=== PATIENT | male | born 1955 | race Hispanic/Latino ===

== ENCOUNTER 2018-11-28 20:22 | Inpatient (IN) ==
[2018-11-28] MEDS ORDERED: ZOFRAN IV ONE (23:45)
[2018-11-28] MEDS ORDERED: MORPHINE IV ONE (23:45)
[2018-11-28] MEDS ORDERED: NS 1,000 ML IV ONE (23:45)
[2018-11-29 00:32] LABS: BASO# 0.03 X1000 (0.0-0.2); BASO% 0.2 % (0.0-0.8); EOS# 0.19 X1000 (0.0-0.7); EOS% 1.5 % (0.0-10.0); HEMATOCRIT 43.8 % (42.0-52.0); HEMOGLOBIN 14.9 g/dL (14.0-18.0); IMM GRAN# 0.03 X1000 (0.0-0.04); IMM GRAN% 0.2 % (0.0-0.5); LYMPH# 3.84 X1000 (1.2-3.4); LYMPH% 29.7 % (20.5-51.1); MCH 30.2 PG (27-31); MCV 88.8 FL (81-99); MONO# 1.18 X1000 (0.11-0.59); MONO% 9.1 % (1.7-9.3); MPV 11.3 FL (7.4-10.4); NEUT# 7.64 X1000 (1.4-6.5); NEUT% 59.3 % (42.2-75.2); PLT 258 X1000 (130-400); RBC 4.93 XMIL (4.7-6.1); RDW 14.8 % (11.5-14.5); WBC 12.91 X1000 (4.8-10.8)
[2018-11-29 01:47] LABS: ALB/GLOB RATIO 1.3; ALBUMIN 4.5 g/dL (3.5-5.0); CALCIUM 9.7 mg/dL (8.8-10.2); CREATININE 3.1 mg/dL (0.7-1.2); POTASSIUM 4.2 mmol/L (3.5-5.1); TOTAL BILIRUBIN 0.89 mg/dL (0.20-1.00); TOTAL PROTEIN 7.9 g/dL (6.3-8.3)
[2018-11-29 03:23] LABS: URINE SOURCE CLEAN CATCH
[2018-11-29 03:32] LABS: BILIRUBIN URINE NEGATIVE (NEGATIVE); BLOOD URINE NEGATIVE (NEGATIVE); COLOR YELLOW; GLUCOSE URINE NEGATIVE (NEGATIVE); KETONE URINE NEGATIVE (NEGATIVE); LEUKOCYTES URINE NEGATIVE (NEGATIVE); NITRITE URINE NEGATIVE (NEGATIVE); PROTEIN URINE TRACE mg/dL (NEGATIVE); SP GRAVITY URINE 1.015; TURBIDITY URINE CLEAR (CLEAR); UROBILINOGEN URINE NORMAL (NORMAL)
[2018-11-29 03:59] LABS: UR EPITHELIAL CELLS <10 /HPF (<10); URINE BACTERIA NEGATIVE /HPF; URINE RBC <10 /HPF (<10); URINE WBC <10 /HPF (<10)
[2018-11-29 04:11] LABS: URINE YEAST NONE SEEN
[2018-11-29 04:12] LABS: URINE CASTS GRANULAR PRESENT; URINE CRYSTALS NONE SEEN; URINE SMALL ROUND CELLS NONE SEEN
--- NOTE | 2018-11-29 05:19 | PROVIDER DOCUMENTATION ---
This chart was entered by Emma Bernardo Scribe, acting as scribe for Shayne Buck MD. HPI-Abdominal Pain/GI Problem - General Chief Complaint: Abdominal Pain Stated Complaint: ABD PAIN Time Seen by Provider: 11/28/18 23:27 Source: patient, appliquer - History of Present Illness-ABD Nature of Presenting Problems: 63yom presents to ED cc diarrhea, right flank and RLQ pain since yesterday. Pt has hx of HTN. Pt is non-toxic in appearance. A friend is at bedside interpreting. Abdominal Pain Onset Location: reports: RLQ Pain Radiation: reports: flank (right) Quality of Pain: reports: throbbing Severity in ED: reports: moderate Onset/Duration: reports: 24 hours ago Timing: reports: still present, intermittent Activities at Onset: reports: none Exposure to sick contacts?: No Modifying Factors: worse with: movement Associated Symptoms: reports: diarrhea. denies: vomiting Last BM: unsure Dark Stools Present?: reports: none noticed Rectal Bleeding: reports: none Rectal Pain: reports: none Emesis Description: reports: none Bruising or Bleeding Gums?: No Similar Symptoms Previously?: No Recently seen or treated by another doctor?: No Review of Systems - Adult - REVIEW OF SYSTEMS - ADULT Constitutional: reports: see HPI. denies: chills, fever, fatique Eyes: reports: no symptoms reported Ears, Nose, Mouth & Throat: reports: no symptoms reported Cardiovascular: reports: no symptoms reported Respiratory: reports: no symptoms reported Gastrointestinal: reports: see HPI, abdominal pain (RLQ), diarrhea. denies: vomiting Genitourinary: reports: see HPI, flank pain (right) Musculoskeletal: reports: no symptoms reported Integumentary: reports: no symptoms reported Neurological: reports: no symptoms reported Psychiatric: reports: no symptoms reported Endocrine: reports: no symptoms reported Hematologic/Lymphatic: reports: no symptoms reported Allergic/Immunologic: reports: no symptoms reported All Other Systems: Reviewed and Negative Past History - Adult - PAST MEDICAL HISTORY-ADULT Review of Records: reports: Nursing Assessment Review, Medications Reviewed, Social history reviewed & non-contributory. Major Childhood Illnesses: reports: denies history Cardiovascular: reports: denies history Respiratory: reports: denies history Gastrointestinal: reports: denies history Obstetrical/Gynecological: reports: denies history Genitourinary: reports: denies history Musculoskeletal: reports: denies history Neurological: reports: denies history Endocrine/Immune: reports: denies history Other Conditions: reports: denies history - IMMUNIZATION STATUS Childhood Immunizations: See Nurse Assessment Flu Vaccine: See Nurse Assessment - FAMILY HISTORY Family History: reviewed, not pertinent Physical Exam-General - PHYSICAL EXAM-ADULT Initial Vital Signs Reviewed: Yes - CONSTITUTIONAL General Appearance: appears well, alert. negative: anxious, combative - EYES Eyes: PERRL/EOMI, pink conjunctivae. negative: photophobia - HEAD, EARS, NOSE, MOUTH & THROAT HENMT: moist mucous membranes, normal ENT inspection, TMs normal, pharynx normal . negative: angioedema, dental decay, hearing deficit - NECK Neck: non-tender, full range of motion, supple, normal inspection. negative: Brudzinski's sign, carotid bruit - RESPIRATORY Respiratory: chest non-tender, lungs clear, normal breath sounds, no pleuratic chest pain, no respiratory distress, no accessory muscle use. negative: crackles, rales, rhonchi - CARDIOVASCULAR Cardiovascular: normal peripheral pulses, regular rate, rhythm, no edema, no gallop, no JVD, no murmur. negative: bradycardia, tachycardia - GASTROINTESTINAL (ABDOMEN) Abdominal Exam: normal bowel sounds, soft, tenderness (Right flank and RLQ). negative: non tender, rigid, rebound - LYMPHATIC Lymphatic: no adenopathy. negative: striations - MUSCULOSKELETAL Back Exam: CVA tenderness (right). negative: swelling Extremity: normal range of motion, normal inspection. negative: deformity, erythema - SKIN Integumentary: normal color, normal turgor, warm/dry. 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 negative: facial droop, focal weakness - PSYCHIATRIC Psych/Mental Status: normal mood/affect, normal thought content, normal thought process, oriented x 3. negative: disoriented x 3, anxious, disheveled Progress - PLAN OF CARE/RESULTS Progress/Plan/Lab Results: Vital Signs - 8 hr 11/28/18 20:33 Temperature 99.7 F H Pulse Rate 79 Respiratory Rate 20 Blood Pressure 156/89 O2 Sat by Pulse Oximetry 96 Orders Category Date Time Status CT ABD/PELVIS W/IV CONT ONLY [CT] Stat Exams 11/28/18 23:44 Ordered CBC WITH ELECTRONIC DIFF [HEME] Stat Lab 11/28/18 23:44 Uncollected COMPREHENSIVE METABOLIC PANEL [CHEM] Stat Lab 11/28/18 23:44 Uncollected URINALYSIS W/POSS RFLX CULT [URINALYSIS] Stat Lab 11/28/18 23:44 Uncollected 0.9% Sodium Chloride Inj [Ns] 1,000 ml Med 11/28/18 23:45 Active IV 999 mls/hr Morphine Med 11/28/18 23:45 Discontinued 4 mg IV NOW ONE Ondansetron [Zofran] Med 11/28/18 23:45 Discontinued 4 mg IV NOW ONE Result Diagrams: 11/28/18 00:04 11/28/18 00:04 - REASSESSMENT Reassessment #1 Status: improving - CONSULTS/PCP/HOSPITALIST Notification #1 *Consult/PCP/Hospitalist*: hospitalist Time Discussed: 05:18 Consult Disposition: Admit Departure - Departure Date of Disposition Decision: 11/29/18 Time of Disposition Decision: 05:18 DIAGNOSIS: Acute kidney injury Disposition: ADMITTED INPATIENT 09 Certified Medical Emergency: Emergent Condition: Serious Referrals and Follow-Ups: None,PCP [Primary Care Provider] - - Critical Care Note This patient required my direct & personal management of CC.: No Attestation - Physician/ RICHARD Attestation Patient care was provided by Advanced Practice Provider:: No The physician spent face to face time with patient:: Yes Advanced Practice Provider documentation review:: Supervising physician onsite and consulted in the evaluation and care of this patient. The physician did have a face to face encounter with the patient. This chart was documented by the indicated scribe, (Emma Bernardo Scribe) and accurately reflects the services I performed and decisions made by me, Shayne Buck MD, as attested by the provider's signature.
--- NOTE | 2018-11-29 06:38 | HISTORY AND PHYSICAL ---
CHIEF COMPLAINT: Right-sided abdominal pain. HISTORY OF PRESENT ILLNESS: Mr. Cox is a 63-year-old male who comes into the emergency room with complaint of small amounts of diarrhea and right flank pain as well as right lower quadrant pain since yesterday. He also states that he has been working outside. He has had a lot of a sweat and very little urine output over the last day. He denies any past medical history other than hypertension. He received fluid in the emergency room. Also had a CT scan. All were grossly normal including his labs except for a BUN of 48 and a creatinine of 3.1. We do not have previous records on the patient. This appears to be an acute kidney injury. He will be admitted for further evaluation and treatment. PAST MEDICAL HISTORY: Hypertension. PREVIOUS SURGICAL HISTORY: Denies. SOCIAL HISTORY: Occasional alcohol. Maybe 1-2 cigarettes per day. No illicit drugs. FAMILY HISTORY: Denies chronic illness in first degree relatives. ALLERGIES: No known drug allergies. HOME MEDICATIONS: Losartan, dose unknown. REVIEW OF SYSTEMS: Fourteen point review of systems conducted with the patient and pertinent positives listed above in the HPI. All other systems reviewed and found to be negative. PHYSICAL EXAMINATION: VITAL SIGNS: Temp 99.7 degrees, pulse 79, respirations 20, blood pressure 156/89, oxygen saturation 96% on room air. GENERAL: Pleasant 63-year-old male who is alert and oriented x3. Answers all questions appropriately. HEENT: Head is atraumatic, normocephalic. Pupils equal, round and reactive to light. Extraocular eye movements intact. Sclerae anicteric. Conjunctivae pink. Oral mucosa is dry. NECK: Supple. No JVD. No thyromegaly. Trachea is midline. No cervical lymphadenopathy. CARDIAC: S1, S2 appreciated. No murmurs, gallops, rubs. LUNGS: Clear to auscultation bilaterally. No rhonchi or wheezes. Symmetric rise and fall of respirations. ABDOMEN: Protuberant. Soft, nondistended, nontender. Bowel sounds present in all 4 quadrants. Normoactive. No pulsatile mass. No organomegaly. EXTREMITIES: No cyanosis, clubbing or edema. 2+ pedal pulses bilaterally. GENITOURINARY: No bladder distention. Otherwise deferred. NEUROLOGICAL: Alert and oriented x3. Cranial nerves 2-12 grossly intact. LABORATORY DATA: WBC 12.91, hemoglobin 14.9, hematocrit 43.8, platelet count 258,000. Sodium 138, potassium 4.2, chloride 95, carbon dioxide 26, BUN 48, creatinine 3.1, glucose 103. Urine unremarkable. ASSESSMENT AND PLAN: 1. Acute kidney injury. Patient received a fluid bolus in the emergency room. We will continue normal saline at 125 mL an hour. We will order retroperitoneal ultrasound as well as urine sodium and creatinine. Consult Dr. Vazquez. Place patient on renal diet. 2. Abdominal pain with diarrhea. CT scan showed appendicitis. We will give [place] and fluids. 3. Hypertension. We will hold home medication at this point. We will treat with hydralazine for systolic blood pressure greater than 160. Further recommendations per patient's clinical course. Dictated by SIDNEY Owens for Lina Peterson MD cc: SIDNEY Owens MD
--- NOTE | 2018-11-29 06:43 | Diag Imaging Result Doc PS360 ---
CT ABDOMEN/PELVIS W/O CONTRAST - 11/28/2018 INDICATION: colitis - verbal order do w/o due to elevated labs per ER physici COMPARISON: None FINDINGS: The lung bases are clear and the heart size is normal. There are a couple of ill-defined low density lesions in the right lobe of the liver measuring up to about 4 cm. No radiodense renal stones. No hydronephrosis or hydroureter. No bowel obstruction. No free air or free fluid. Adjacent to the sigmoid colon there is a small inflammatory area with fat density centrally compatible with an inflamed epiploic appendage. Normal appendix. Small fat-containing right inguinal hernia. Urinary bladder, prostate, and rectum are normal. There are moderate degenerative changes of the spine. No acute or suspicious bony lesion. IMPRESSION: 1. Epiploic appendagitis of the sigmoid colon. 2. Ill-defined low density lesions of the liver. Recommend further evaluation with a follow-up CT or MRI of the abdomen with intravenous contrast, liver hemangioma protocol. This exam was performed using automated exposure control, adjustment of mA or kV according to patient size, and/or use of iterative reconstruction technique Electronically signed by Rock Jasso 11/29/2018 6:40 AM
[2018-11-29] MEDS ORDERED: NORCO-7.5 PO PRN (07:03)
[2018-11-29] MEDS ORDERED: APRESOLINE IV PRN (07:03)
[2018-11-29] MEDS ORDERED: TYLENOL PO PRN (07:03)
[2018-11-29] MEDS ORDERED: ZOFRAN IV PRN (07:03)
[2018-11-29 07:27] LABS: UR CREAT RANDOM 194.1 mg/dL (14-26)
[2018-11-29] MEDS: HEPARIN SUBQ SCH ×2 (09:42→21:05)
[2018-11-29] MEDS: NS 1,000 ML IV SCH ×4 (09:42→23:24)
--- NOTE | 2018-11-29 13:25 | PROGRESS NOTE ---
DATE: 11/29/2018 SUBJECTIVE: This morning Mr. Cox referred to be feeling a whole lot better. He denies any more abdominal pain Mr. Cox is a [place] immigrant who said he has been here in [facility] for the past 2 months. He did say that he has a history of right upper quadrant pain every now and then. He had a checkup in [place] and was told that he had some liver cysts. He was admitted yesterday when he presented because of acute onset of abdominal pain, especially on the right side, that was not controlled with anything pain. He was also found to have remarkable renal function test. This morning, he refers to be feeling a whole lot better. Abdominal pain has subsided. OBJECTIVE: On general exam, Mr. Cox is a 66-year-old male. He is in bed. He is not in any cardiopulmonary distress. Mucosa is pink. It is slightly dry. Anicteric. Acyanotic. Neck is supple. Chest: Good air entry bilateral. There were no crepitations. No rhonchi. Cardiovascular: Regular rate and rhythm. No murmurs, no rubs, no gallops. Gastrointestinal: Abdomen is soft. There is no tenderness anywhere at this point. No rebound. No guarding. Bowel sounds are present. No hepatosplenomegaly. Extremities: No pedal edema. Central Nervous System: Patient is awake, alert, oriented. There is no focal neurological deficit. DIAGNOSTIC STUDIES: None for today; however, the chemistry from yesterday revealed a BUN of 48 and creatinine of 3.1. Urinalysis did show granular casts, and urine creatinine was 194, urine sodium was 38. A CT scan of the abdomen and pelvis without contrast did show epiploic appendagitis of the sigmoid colon. There are also ill-defined low-density lesions of the liver. ASSESSMENT: 1. Right upper quadrant abdominal pain. CT scan reveals some lesions in the liver. The patient has a history of some cysts in the liver. He has been made aware of that since [place]. I am not sure if any of those cysts got ruptured and gave him this acute pain. Currently, he does not seem to be in that much pain. We will do an MRI of the abdomen for better visualization since we could not do a CT with contrast because of the renal disease. We will also do stool for ova and parasite to rule out any potential for amebiasis into the liver. 2. Clinical volume depletion. Patient is currently on IV fluids. 3. Renal failure. This seems to be acute, and it appears to be a combination of dehydration on on top of ARBs therapy. ARBs have been discontinued. The patient's FENa today is 0.43, which would be consistent with intravascular depletion. We will continue the IV fluids. Renal ultrasound has been ordered, and Nephrology has been consulted. We will avoid any nephrotoxins for now and repeat his renal function tests for tomorrow morning. 4. Hypertension. Currently blood pressure is under control. We will withhold the ARBs and probably use another agent if there is a need. 5. Sigmoid epiploic appendagitis noted on CT scan. Patient is clinically asymptomatic. In general, I think Mr. Cox is doing well. Abdominal pain has subsided. He does have history of some cysts in the liver so I am not sure if there was a ruptured cyst that gave him the acute pain or the lesion in the liver is something else. Now, liver amebiasis is also common, especially him being a migrant. We are going to do a stool ova and parasite. We will also do an MRI of the abdomen. Ultrasound of the renals have been ordered, and we are waiting on that. We will continue to hydrate him well and we will be pending further recommendations from Nephrology. cc: Vickey Wall MD MTDD
--- NOTE | 2018-11-29 15:35 | Diag Imaging Result Doc PS360 ---
US RENAL 2 (RETROPER) COMPLETE - 11/29/2018 INDICATION: renal failure TECHNIQUE: COMPARISON: CT from earlier 11/29/2018 FINDINGS: The kidneys and urinary bladder are normal. The right kidney measures 10 x 4.8 x 5.1 cm. The left kidney measures 11 x 6.3 x 4.7 cm. IMPRESSION: Negative exam. Electronically signed by Rock Jasso 11/29/2018 3:33 PM
--- NOTE | 2018-11-29 15:51 | NEPHROLOGY CONSULTATION ---
DATE: 11/29/2018 REASON FOR ADMISSION: Right-sided abdominal pain. CONSULTING PHYSICIAN: Dr. Peterson. HISTORY OF PRESENT ILLNESS: Mr. Cox is a 63-year-old male, who states that he does not speak any [place] Citizen. What we can get out of him is that he had started with nausea and vomiting at work yesterday. He states that he had been outside. Very little urine, taking his blood pressure medication which we have found is losartan. He presented to the emergency room, was found to have an elevated BUN of 48 with a creatinine of 3.1. CT of the abdomen showed possible appendicitis with lesions on his liver. Negative for any hydronephrosis or obstruction. Due to these findings, they had collected some urine electrolytes indicating a low FENa score of 0.44%. He received an IV fluid bolus of 1 L of normal saline. Continues on normal saline at 125 mL an hour x3 bags per the primary care. Losartan has been stopped. We have requested that they keep a strict I O for continuing to monitor his urine output. We have no baseline creatinine in the system. PAST MEDICAL HISTORY: Hypertension. The patient has been taking outpatient losartan. PREVIOUS MEDICAL HISTORY OR SURGICAL HISTORY: Outside of what we have obtained, we do not understand anything further. He shakes his head negatively. SOCIAL HISTORY: Smokes 1 to 2 cigarettes a day. Occasional beer. No illicit drugs. Does not speak [place] Citizen, understands more than he speaks. ALLERGIES: Listed as no known drug allergies. MEDICATIONS: Only losartan that has been listed. REVIEW OF SYSTEMS: As best obtained per patient with pertinent positives listed above in the HPI. Further information obtained from previous H P. VITAL SIGNS: Temperature 99.7 degrees, blood pressure 156/89, heart rate 79, respirations are 20. He is on room air. Last recorded saturation is 96%. LABS: Sodium 138, potassium 4.2, chloride 95, CO2 26, BUN 48, creatinine 3.1, glucose 103, anion gap is 17, calcium is 9.7. White count 12.9, hemoglobin 14.9, hematocrit 43.8 with a platelet count of 258,000. As mentioned CT of the abdomen shows acute appendicitis, possible lesions on the liver with recommended follow up on a CT with contrast. PHYSICAL EXAMINATION: General: This is a 63-year-old male who appears in no acute distress. Skin: Warm and dry. HEENT: Normocephalic, atraumatic. Conjunctiva is pale pink. He has DANIELLE. Mucous membranes are dry. Neck: Supple. Trachea midline. No evidence of JVD. Cardiovascular: Regular rate and rhythm. He is without murmur or gallop. Lungs: Clear to auscultation bilaterally. Equal excursion on room air. Abdomen: Protuberant, nondistended. No sensitivity to soft palpation to the right or the left lower quadrants. Genitourinary not inspected. Recommended to keep a strict I and O. Extremities: 1 to 2+ lower extremity edema. No clubbing or cyanosis. Neurological: He is alert and oriented, just does not speak [place] Citizen well, but understands better. ASSESSMENT AND PLAN: 1. Acute kidney injury, more than likely this is multifactorial secondary to dehydration associated with nausea and vomiting on the context of continuing to take his ARB. He has a low FENa score. We continue to support IV fluid resuscitation. He remains on normal saline at [address] of the abdomen does show no hydro or lesions. 2. Electrolytes, acid-base balance and anemia. These are all in target. 3. Hypertension. His losartan is now on hold. He is being treated with hydralazine for systolic greater than 160. 4. Abdominal pain for follow up on appendicitis. He is being treated with fluid volume and [place]. We will defer to the primary care team. I would like to thank you for allowing us to follow with this patient. Dictated by SIDNEY Silva for Bobby Vazquez MD Face to face encounter, data reviewed, discussed with Marva Moore on 11/29/18. I agree with the above assessment and plan of care. cc: SIDNEY Silva MD [facility]
--- NOTE | 2018-11-29 18:29 | Diag Imaging Result Doc PS360 ---
MRI ABDOMEN W/O CONTRAST - 11/29/2018 INDICATION: liver lesions. TECHNIQUE: COMPARISON: Prior CT FINDINGS: Intravenous contrast was not administered due to severely impaired renal functioning. In addition, there is a lot of patient motion artifact. The other modalities in the liver are cystic. The lateral right lobe lesion is a septated cyst. This measures 3.1 x 2.4 cm. The smaller area in the liver dome is a more simple cystic area. No other abnormalities visible. IMPRESSION: The liver abnormalities appear cystic on this MRI. Unlikely to be very significant. Electronically signed by Rock Jasso 11/29/2018 6:27 PM
[2018-11-30] MEDS: NS 1,000 ML IV SCH (05:13)
[2018-11-30 07:14] LABS: BASO# 0.03 X1000 (0.0-0.2); BASO% 0.4 % (0.0-0.8); EOS# 0.17 X1000 (0.0-0.7); EOS% 2.5 % (0.0-10.0); HEMATOCRIT 40.9 % (42.0-52.0); HEMOGLOBIN 13.7 g/dL (14.0-18.0); LYMPH% 37.9 % (20.5-51.1); MCH 30.4 PG (27-31); MCHC 33.5 g/dL (33-37); MCV 90.9 FL (81-99); MONO# 0.56 X1000 (0.11-0.59); MONO% 8.2 % (1.7-9.3); MPV 11.4 FL (7.4-10.4); PLT 223 X1000 (130-400); RDW 14.5 % (11.5-14.5); WBC 6.86 X1000 (4.8-10.8)
[2018-11-30 07:58] LABS: CREATININE 1.3 mg/dL (0.7-1.2); POTASSIUM 4.6 mmol/L (3.5-5.1)
[2018-11-30] MEDS: HEPARIN SUBQ SCH (09:49)
[2018-11-30 13:54] VITALS: BP 145/65
--- NOTE | 2018-11-30 15:23 | INFECTIOUS DISEASE CONSULT REP ---
DATE: 11/30/2018 CONCLUSION: I was asked to see the patient regarding liver cysts. The patient does not speak any Somali and no family members present. The patient was admitted to the hospital with right-sided abdominal pain. He was found to be dehydrated. His creatinine got up to 3.1 and the BUN was 48. The patient was apparently told that some time in his life that he had liver cysts. A CAT scan was done without IV contrast, and it just showed liver low-density lesions. An MRI was done without any IV contrast, and it showed liver cysts. RECOMMENDATION: I have ordered serology for echinococcus and amebiasis. For echinococcus I will treat with albendazole and for amebiasis Flagyl will be used. PAST MEDICAL HISTORY: Positive for hypertension. PAST SURGICAL HISTORY: Negative. SOCIAL HISTORY: The patient smokes cigarettes and drinks alcoholic beverages. He does not use illicit drugs. FAMILY HISTORY: No chronic illness in first-degree relatives. ALLERGIES: No drug allergies. HOME MEDICATIONS: The only 1 is Cozaar. REVIEW OF SYSTEMS: This was unable to be obtained. PHYSICAL EXAMINATION: Vital Signs: Temperature is 97.9 degrees, pulse 95, respirations 16, blood pressure 131/69. Patient is 5 feet 5 inches tall, weighs 199 pounds. General: This is an obese, middle-aged male. He is lying in bed and in no acute distress. Head/eyes/ears/nose/throat: No drainage noted from the nose or ears. He did track with his eyes. He could hear my spoken words. Neck: No meningismus. Lungs: Clear to auscultation. Cardiovascular: Heart rate is regular. Abdomen: Soft and nontender. I did not feel any masses. Neurologic: The patient is awake. He can move his arms and legs. There is no tremor. cc: Kimo Henson MD MTDD
--- NOTE | 2018-11-30 15:40 | NEPHROLOGY PROGRESS NOTE ---
DATE: 11/30/2018 SUBJECTIVE: He is feeling well today. No nausea, pain, etc. OBJECTIVE: Vital Signs: Blood pressure 145/65, heart rate 65, respirations 16, afebrile. General: No acute distress. Skin: Warm and dry. Neck: Neck veins are not distended. Heart: Regular. No gallops. Lungs: Equal. No crackles. Abdomen: Soft, nontender. Bowel sounds present. Extremities: No edema, clubbing or cyanosis. IMPRESSION: Acute kidney injury secondary to intravascular volume depletion in the context of angiotensin receptor deep therapy. Acute kidney injury is resolving. I will sign off. I would recommend perhaps changing his antihypertensive medication to a calcium channel deep to avoid future events. cc: Bobby Vazquez MD
--- NOTE | 2018-11-30 16:00 | Diag Imaging Result Doc PS360 ---
EXAM: US ABDOMEN-COMPLETE 11/30/2018 HISTORY: liver cysts TECHNIQUE: Abdominal ultrasound COMMENT: The liver is slightly hyperechoic. There are breast fairly well-circumscribed and homogeneously hyperechoic lesions in the right hepatic lobe which in aggregate measures over 4 cm in greatest dimension. This is likely a hemangioma or hemangiomata. No cystic lesions are identified. There is also a similar lesion present between the anterior and middle hepatic veins near the inferior vena cava. The gallbladder is clear and nontender. The common bile duct is not distended measuring 4 mm. There is antegrade flow in the portal vein. The kidneys are without evidence of hydronephrosis or mass. The spleen is not enlarged. There are no abnormal fluid collections. IMPRESSION: No evidence of cystic hepatic lesions. The abnormalities demonstrated on ultrasonography are most likely hemangiomata and this would be consistent with the appearance on the MRI study. If further confirmation is desired, SPECT imaging with labeled red cells with confirm the nature of the larger lesion. Electronically signed by Cleveland Simeon 11/30/2018 3:58 PM
--- NOTE | 2018-12-01 13:21 | DISCHARGE SUMMARY ---
ADMISSION DATE: 11/29/2018 DISCHARGE DATE: 11/30/2018 DISPOSITION: Home. FOLLOW-UP: 1. Dr. Henson. 2. Dr. Vazquez. CONSULTATION DURING ADMISSION: 1. ID was consulted. Patient was seen by Dr. Henson. 2. Nephrology was consulted. Patient was seen by Dr. Vazquez. IMAGING STUDIES OF SIGNIFICANCE: 1. CT scan of the abdomen showed epiploic appendagitis of the sigmoid colon, and an ill-defined low-density lesions of the liver. 2. Renal ultrasound was negative. 3. Abdominal MRI did show liver abnormalities and appears cystic. 4. Ultrasound of the abdomen showed no evidence of cystic hepatic lesions. The abnormality demonstrated most likely hemangiomata and this would be consistent with the MRI study as well. ADMISSION DIAGNOSES: 1. Acute kidney injury. 2. Abdominal pain. 3. Hypertension. DIAGNOSES AT TIME OF DISCHARGE: 1. Right upper quadrant abdominal pain on presentation, resolved. Imaging Studies seems to suggest hemangiomata. 2. Clinical volume depletion. 3. Acute renal failure. 4. Hypertension. 5. Sigmoid colon epiploic appendagitis noted on CT scan. Patient is currently asymptomatic. DISCHARGE MEDICATIONS: Amlodipine 5 mg p.o. daily. DISCONTINUED MEDICATIONS: Losartan 50 mg p.o. daily. PRESENTING COMPLAINT: Right side abdominal pain. HISTORY OF PRESENTING COMPLAINT: Mr. Cox is a 63-year-old male with a history of hypertension who is also known to have some lesions in his liver, presented to the emergency department because of ongoing abdominal pain that got acutely worse on the day of presentation. Patient was evaluated, and was found to have some lesions on the CT scan. However, contrast could not be used because he was also extremely volume depleted with acute kidney injury. Creatinine was 3.1 on admission. HOSPITAL COURSE: Mr. Cox was admitted to the medical floor and was adequately fluid resuscitated. His hydration status significantly improved, and his creatinine improved overnight to 1.3. The patient was seen by Nephrology as well as ID. During the hospital course because of the lesions in his liver, we were concerned if that could be a hydatid cyst or amebiasis so ID was consulted. Echinococcus and amoeba serology was sent by Infectious Disease. The patient also did mention about some diarrhea so stool studies were sent including an Ova and parasite, which have come back negative. Today, Mr. Cox feels a whole lot better. He feels stronger. He denies any complaints. He thinks he will be okay for discharge. His vitals have been reviewed. Blood pressure is currently 145/65, pulse of 65, respirations 16, and temperature 99 degrees. Patient is clinically stable for discharge. Physical exam is unremarkable. He is going to follow up with Dr. Henson, about the serology that is still pending. He has been advised to adequately hydrate himself and follow up with his PCP, and also with Nephrology in about a week to 2 with a repeat renal function test. All of the discharge instructions were discussed with Mr. Cox in his [place] language, [place], and he voiced understanding. TIME SPENT: Time spent for discharge is 36 minutes. cc: Vickey Wall MD
== END 2018-11-30 16:43 | disposition home or self-care (01) | DRG 684 ==
LOC: ED 20:22 → EDIPHOLD 11-29 06:19 → SUATTDRO 11-29 06:19 → 3N 11-29 07:22
PROVIDERS: ATTEND Internal Medicine
CPT/HCPCS: 74176; 74181; 76700; 76770; 80048; 80053; 81001; 82550; 82570; 83690; 84300; 84443; 85025; 86160; 87045; 87046; 87177; 87205; 88313; 89055; 99999; J1644; J2270; J2405; J7030